=== PATIENT | female | born 1940 | race Hispanic/Latino ===

== ENCOUNTER 2022-10-15 00:52 | Inpatient (IN) | payer MEDICARE, OTHER ==
[2022-10-15] MEDS ORDERED: Senokot S 8.6-50 MG TAB PO PRN (01:21)
[2022-10-15] MEDS ORDERED: Calcium Carbonate 500 MG ChewTAB PO PRN (01:21)
[2022-10-15] MEDS ORDERED: Sodium Chloride 0.9% 500 ML IV SCH (01:30)
[2022-10-15 01:35] VITALS: BMI 29.0
[2022-10-15] MEDS: Fioricet 325/50/40 mg Tablet PO PRN ×3 (02:20→20:30)
[2022-10-15] MEDS: Levothyroxine Sodium 75 MCG TAB PO SCH (05:53)
[2022-10-15] MEDS ORDERED: Carvedilol 3.125 MG TAB PO SCH ×3 (08:30→17:00)
[2022-10-15] MEDS ORDERED: Trospium 20 MG TAB PO SCH (09:00)
[2022-10-15] MEDS ORDERED: Fluticasone Propionate Nasal Spray 16 gm Bottle NASAL SCH (09:00)
[2022-10-15] MEDS: Sertraline 25 MG TAB PO SCH (09:06)
[2022-10-15] MEDS: Ursodiol 300 MG CAP PO SCH ×2 (09:07→21:21)
[2022-10-15] MEDS: Aspirin 81 mg Enteric Coated Tablet PO SCH (09:07)
[2022-10-15] MEDS: Clopidogrel Bisulfate 75 MG TAB PO SCH (09:08)
[2022-10-15] MEDS ORDERED: Iopamidol 300 61% 100 ML VIAL FS ONE (09:22)
[2022-10-15 10:26] LABS: #Monocytes 1.3 10x3/uL (0.0-1.1); #Neutrophils 6.4 10x3/uL (1.5-8.4); %Basophils 0.3 % (0.0-2.0); %Eosinophils 0.4 % (0.0-6.0); %Monocytes 14.3 % (0.0-10.0); %Neutrophils 71.8 % (40.0-75.0); Hemoglobin 10.2 g/dL (12.0-15.5); Mean Corpuscular HGB CONC 33.1 g/dL (32.0-36.0); Mean Corpuscular Hemoglobin 27.2 pg (27.0-33.0); Mean Corpuscular Volume 82.1 fl (81.6-98.3); Mean Platelet Volume 10.4 fl (7.4-10.4); Platelet Count 240 10x3/uL (150-450); RBC Distribution Width 15.2 % (11.5-14.5); Red Blood Cell (RBC) Count 3.75 10x6/uL (3.90-5.03); White Blood Cell (WBC) Count 8.9 10x3/uL (3.5-10.5)
[2022-10-15 10:36] LABS: Anion Gap 15 mmol/L (10-20); BUN (Urea Nitrogen) 13 mg/dL (9.8-20.1); Calc. Creatinine Clearance 63 mL/min (70-130); Calcium 8.1 mg/dL (7.8-10.44); Carbon Dioxide 19 mmol/L (23-31); Cardiac Risk 2.6 (Less than 4.5); Chloride 105 mmol/L (98-107); Cholesterol 124 mg/dl (< 200 Desired); Estimated GFR 81; Glucose 115 mg/dL (83-110); HDL Cholesterol 48 mg/dL (>60 Neg Risk); LDL Cholesterol, Calculated 53 mg/dL; Potassium 3.7 mmol/L (3.5-5.1); Sodium 135 mmol/L (136-145); Triglycerides 117 mg/dL (Less than 150)
[2022-10-15 10:54] LABS: CKMB 3.1 ng/mL (0-6.6)
[2022-10-15] MEDS: Ondansetron PF 4 MG/2 ML Vial IVP PRN ×2 (15:18→20:30)
[2022-10-15] MEDS: hydrALAZINE 20 MG/ML VIAL SLOW IVP PRN (15:55)
[2022-10-15] MEDS ORDERED: Lactated Ringer's 1,000 ML IV SCH (16:30)
[2022-10-15] MEDS: Carvedilol 3.125 MG TAB PO SCH (20:30)
[2022-10-15] MEDS: Doxazosin 2 MG TAB PO SCH (21:21)
[2022-10-15] MEDS: Atorvastatin Calcium 40 MG TAB PO SCH (21:21)
[2022-10-15] MEDS: Montelukast Sodium 10 mg Tablet PO SCH (21:21)
[2022-10-15] MEDS: Trospium 20 MG TAB PO SCH (21:21)
[2022-10-16] MEDS: hydrALAZINE 20 MG/ML VIAL SLOW IVP PRN ×4 (04:51→19:47)
[2022-10-16] MEDS: Fioricet 325/50/40 mg Tablet PO PRN ×3 (04:53→21:43)
[2022-10-16] MEDS: Levothyroxine Sodium 75 MCG TAB PO SCH (05:21)
[2022-10-16] MEDS ORDERED: Valsartan 80 MG TAB PO SCH ×2 (09:00→15:00)
[2022-10-16] MEDS ORDERED: URSODIOL 500 MG PO SCH (09:00)
[2022-10-16] MEDS ORDERED: Lactated Ringer's 1,000 ML IV SCH (09:15)
[2022-10-16] MEDS: Trospium 20 MG TAB PO SCH ×2 (10:44→21:32)
[2022-10-16] MEDS: Ursodiol 300 MG CAP PO SCH ×2 (10:45→17:42)
[2022-10-16] MEDS: Furosemide 40 MG TAB PO SCH (10:45)
[2022-10-16] MEDS: Sertraline 25 MG TAB PO SCH (10:45)
[2022-10-16] MEDS: Aspirin 81 mg Enteric Coated Tablet PO SCH (10:46)
[2022-10-16] MEDS: Clopidogrel Bisulfate 75 MG TAB PO SCH (10:46)
[2022-10-16] MEDS: Carvedilol 3.125 MG TAB PO SCH ×2 (10:46→17:42)
[2022-10-16] MEDS: Fluticasone Propionate Nasal Spray 16 gm Bottle NASAL SCH (10:50)
[2022-10-16] MEDS: Acetaminophen 325 MG TAB PO PRN (13:05)
[2022-10-16] MEDS: Doxazosin 2 MG TAB PO SCH (21:32)
[2022-10-16] MEDS: Atorvastatin Calcium 40 MG TAB PO SCH (21:32)
[2022-10-16] MEDS: Montelukast Sodium 10 mg Tablet PO SCH (21:32)
[2022-10-17] MEDS: Fioricet 325/50/40 mg Tablet PO PRN ×4 (04:06→18:49)
[2022-10-17] MEDS: Levothyroxine Sodium 75 MCG TAB PO SCH (05:54)
[2022-10-17] MEDS: cefTRIAXone\\ROCEPHIN 1 GM in Sodium Chloride 0.9% 100 ML IVPB SCH (08:43)
[2022-10-17] MEDS: Sertraline 25 MG TAB PO SCH (08:44)
[2022-10-17] MEDS: Trospium 20 MG TAB PO SCH ×2 (08:44→21:05)
[2022-10-17] MEDS: Aspirin 81 mg Enteric Coated Tablet PO SCH (08:44)
[2022-10-17] MEDS: Carvedilol 3.125 MG TAB PO SCH ×2 (08:44→18:48)
[2022-10-17] MEDS: Clopidogrel Bisulfate 75 MG TAB PO SCH (08:44)
[2022-10-17] MEDS: Acetaminophen 325 MG TAB PO PRN (08:44)
[2022-10-17] MEDS: Ursodiol 300 MG CAP PO SCH ×2 (08:44→18:48)
[2022-10-17] MEDS: Valsartan 80 MG TAB PO SCH (08:45)
[2022-10-17] MEDS: Furosemide 40 MG TAB PO SCH (08:45)
[2022-10-17] MEDS: Fluticasone Propionate Nasal Spray 16 gm Bottle NASAL SCH (08:57)
[2022-10-17] MEDS: Ventolin HFA Inhaler 60 PUFF INHALER INH PRN (09:29)
[2022-10-17] MEDS: Ondansetron PF 4 MG/2 ML Vial IVP PRN (09:57)
[2022-10-17] MEDS: hydrALAZINE 20 MG/ML VIAL SLOW IVP PRN (11:41)
[2022-10-17] MEDS: hydrALAZINE 25 MG TAB PO SCH ×2 (14:39→21:05)
[2022-10-17] MEDS: Atorvastatin Calcium 40 MG TAB PO SCH (21:05)
[2022-10-17] MEDS: Montelukast Sodium 10 mg Tablet PO SCH (21:05)
[2022-10-17] MEDS: Estradiol 0.01% Vaginal Cream 42.5 gm Tube VAG SCH (21:06)
[2022-10-17] MEDS: Doxazosin 2 MG TAB PO SCH (21:09)
[2022-10-18] MEDS: Fioricet 325/50/40 mg Tablet PO PRN ×4 (02:04→22:34)
[2022-10-18 04:38] LABS: #Eosinphils 0.1 10x3/uL (0.0-0.5); #Monocytes 0.8 10x3/uL (0.0-1.1); #Neutrophils 3.6 10x3/uL (1.5-8.4); %Basophils 0.5 % (0.0-2.0); %Eosinophils 1.6 % (0.0-6.0); %Lymphocytes 29.9 % (18.0-47.0); %Monocytes 12.3 % (0.0-10.0); %Neutrophils 55.2 % (40.0-75.0); Hemoglobin 10.9 g/dL (12.0-15.5); Mean Corpuscular HGB CONC 33.3 g/dL (32.0-36.0); Mean Corpuscular Volume 81.1 fl (81.6-98.3); Mean Platelet Volume 10.2 fl (7.4-10.4); Platelet Count 306 10x3/uL (150-450); RBC Distribution Width 14.5 % (11.5-14.5); Red Blood Cell (RBC) Count 4.03 10x6/uL (3.90-5.03); White Blood Cell (WBC) Count 6.4 10x3/uL (3.5-10.5)
[2022-10-18 04:51] LABS: Anion Gap 16 mmol/L (10-20); BUN (Urea Nitrogen) 9 mg/dL (9.8-20.1); Calc. Creatinine Clearance 66 mL/min (70-130); Calcium 8.5 mg/dL (7.8-10.44); Carbon Dioxide 22 mmol/L (23-31); Chloride 100 mmol/L (98-107); Estimated GFR 86; Glucose 92 mg/dL (83-110); Potassium 3.5 mmol/L (3.5-5.1); Sodium 134 mmol/L (136-145)
[2022-10-18] MEDS: Levothyroxine Sodium 75 MCG TAB PO SCH (06:25)
[2022-10-18] MEDS: Furosemide 40 MG TAB PO SCH (06:25)
[2022-10-18] MEDS: Ventolin HFA Inhaler 60 PUFF INHALER INH PRN (07:55)
[2022-10-18] MEDS: hydrALAZINE 25 MG TAB PO SCH ×3 (08:12→20:35)
[2022-10-18] MEDS: Clopidogrel Bisulfate 75 MG TAB PO SCH (08:13)
[2022-10-18] MEDS: Ursodiol 300 MG CAP PO SCH ×2 (08:15→16:13)
[2022-10-18] MEDS: Carvedilol 3.125 MG TAB PO SCH (08:15)
[2022-10-18] MEDS: Aspirin 81 mg Enteric Coated Tablet PO SCH (08:15)
[2022-10-18] MEDS: Sertraline 25 MG TAB PO SCH (08:16)
[2022-10-18] MEDS: Trospium 20 MG TAB PO SCH ×2 (08:16→20:35)
[2022-10-18] MEDS: Fluticasone Propionate Nasal Spray 16 gm Bottle NASAL SCH (08:21)
[2022-10-18] MEDS: Valsartan 80 MG TAB PO SCH (08:23)
[2022-10-18] MEDS: cefTRIAXone\\ROCEPHIN 1 GM in Sodium Chloride 0.9% 100 ML IVPB SCH (08:24)
[2022-10-18] MEDS ORDERED: Polyethylene Glycol 3350 17 GM Packet PO SCH (10:45)
[2022-10-18] MEDS: Acetaminophen 325 MG TAB PO PRN (11:46)
[2022-10-18] MEDS: Carvedilol 12.5 MG TAB PO SCH (16:13)
[2022-10-18] MEDS: Montelukast Sodium 10 mg Tablet PO SCH (20:34)
[2022-10-18] MEDS: Atorvastatin Calcium 40 MG TAB PO SCH (20:34)
[2022-10-18] MEDS: Doxazosin 2 MG TAB PO SCH (20:34)
[2022-10-18] MEDS: Estradiol 0.01% Vaginal Cream 42.5 gm Tube VAG SCH (20:36)
[2022-10-18] MEDS: Ondansetron PF 4 MG/2 ML Vial IVP PRN (20:53)
[2022-10-19] MEDS: Fioricet 325/50/40 mg Tablet PO PRN ×2 (03:37→09:17)
[2022-10-19] MEDS: Acetaminophen 325 MG TAB PO PRN (06:13)
[2022-10-19] MEDS: Furosemide 40 MG TAB PO SCH (06:14)
[2022-10-19] MEDS: Levothyroxine Sodium 75 MCG TAB PO SCH (06:14)
[2022-10-19] MEDS ORDERED: Polyethylene Glycol 3350 17 GM Packet PO SCH (09:00)
[2022-10-19] MEDS: Aspirin 81 mg Enteric Coated Tablet PO SCH (09:01)
[2022-10-19] MEDS: Carvedilol 12.5 MG TAB PO SCH (09:02)
[2022-10-19] MEDS: Trospium 20 MG TAB PO SCH (09:02)
[2022-10-19] MEDS: Ursodiol 300 MG CAP PO SCH (09:02)
[2022-10-19] MEDS: hydrALAZINE 25 MG TAB PO SCH (09:02)
[2022-10-19] MEDS: Clopidogrel Bisulfate 75 MG TAB PO SCH (09:03)
[2022-10-19] MEDS: Sertraline 25 MG TAB PO SCH (09:03)
[2022-10-19] MEDS: Fluticasone Propionate Nasal Spray 16 gm Bottle NASAL SCH (09:11)
[2022-10-19] MEDS: cefTRIAXone\\ROCEPHIN 1 GM in Sodium Chloride 0.9% 100 ML IVPB SCH ×2 (09:11→10:16)
[2022-10-19] MEDS: Valsartan 80 MG TAB PO SCH (09:11)
[2022-10-19 11:57] VITALS: BP 155/72; TEMP 97.9
== END 2022-10-19 12:45 | disposition home health service (06) | DRG 690 ==
LOC: CSHTELE 00:52 → INTOOBSV 00:52 → OBSVTOIN 10-16 14:57
PROVIDERS: ADMIT Student in an Organized Health Care Education/Training Program; ATTEND Family Medicine
DX: N12 Tubulo-interstitial nephritis, not specified as acute or chronic (principal); I10 Essential (primary) hypertension; R77.8 Other specified abnormalities of plasma proteins; E78.5 Hyperlipidemia, unspecified; E03.9 Hypothyroidism, unspecified; F41.9 Anxiety disorder, unspecified; F32.A Depression, unspecified; Z66 Do not resuscitate; R51.9 Headache, unspecified; R47.1 Dysarthria and anarthria; F03.90 Unspecified dementia, unspecified severity, without behavioral disturbance, psychotic disturbance, mood disturbance, and anxiety; R53.1 Weakness; N39.0 Urinary tract infection, site not specified; B96.20 Unspecified Escherichia coli [E. coli] as the cause of diseases classified elsewhere; Z88.0 Allergy status to penicillin; Z86.73 Personal history of transient ischemic attack (TIA), and cerebral infarction without residual deficits; Z90.49 Acquired absence of other specified parts of digestive tract; Z90.710 Acquired absence of both cervix and uterus; Z98.890 Other specified postprocedural states; Z88.5 Allergy status to narcotic agent; Z88.8 Allergy status to other drugs, medicaments and biological substances; Z82.49 Family history of ischemic heart disease and other diseases of the circulatory system; Z79.51 Long term (current) use of inhaled steroids; Z79.82 Long term (current) use of aspirin; Z79.890 Hormone replacement therapy; Z79.899 Other long term (current) drug therapy; Z91.041 Radiographic dye allergy status
CPT/HCPCS: 36415; 70551; 74177; 80048; 80061; 82553; 84484; 85025; 87077; 87086; 87186; 93306; 94664; 94760; 96372; 96374; 96375; 96376; G0378; G0379; J0360; J0696; J1650; J1956; J2405; J3490; J7030; J7120; Q9967